=== PATIENT | female | born 2000 ===

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

== ENCOUNTER → 2022-02-13 | Outpatient (CLI) | payer OTHER | END | disposition home or self-care (01) | LOC: LAB 13:22 → LAB SHORT 13:22 | DX: O02.1 Missed abortion (principal) | CPT/HCPCS: 84702 ==

== ENCOUNTER → 2022-07-07 | Outpatient (CLI) | payer OTHER | END | disposition home or self-care (01) | LOC: LAB SHORT 17:37 | DX: R30.0 Dysuria (principal) | CPT/HCPCS: 87077; 87086; 87186 ==

== ENCOUNTER → 2023-03-15 | Outpatient (CLI) | payer OTHER | LOC: LAB SHORT 17:30 → LAB 17:30 | DX: Z34.03 Encounter for supervision of normal first pregnancy, third trimester (principal); Z3A.37 37 weeks gestation of pregnancy | CPT/HCPCS: 87081; 87150 ==

== ENCOUNTER 2023-04-08 07:00 | Inpatient (IN) | payer OTHER ==
[2023-04-08] VITALS (27 sets, daily range): BP systolic 106–133; BP diastolic 55–88
[~2023-04-08] VITALS: Ht 170.2 cm; Wt 86.0 kg
[2023-04-08 08:11] LABS: BASOPHILS ABSOLUTE AUTO 0.03 K/mm3 (0.00-0.23); BASOPHILS PERCENT AUTO 0 % (0-2); EOSINOPHILS ABSOLUTE AUTO 0.07 K/mm3 (0.00-0.68); EOSINOPHILS PERCENT AUTO 1 % (0-6); Hematocrit 35.4 % (33.0-51.0); Hemoglobin 12.2 g/dL (11.5-16.0); IMMATURE GRAN ABSOLUTE AUTO 0.04 K/mm3 (0.00-0.10); IMMATURE GRAN PERCENT AUTO 0 % (0-1); LYMPHOCYTES ABSOLUTE AUTO 2.34 K/mm3 (0.84-5.20); LYMPHOCYTES PERCENT AUTO 22 % (21-46); MONOCYTES PERCENT AUTO 8 % (4-13); Mean Corpuscular HGB 29.8 pg (26.0-34.0); Mean Corpuscular HGB Conc 34.5 g/dL (31.5-36.5); Mean Corpuscular Volume 87 fL (80-100); Mean Platelet Volume 12.7 fL (9.1-12.4); NEUTROPHILS ABSOLUTE AUTO 7.34 K/mm3 (1.96-9.15); NEUTROPHILS PERCENT AUTO 69 % (41-73); Platelet Count 185 K/mm3 (150-400); RDW Standard Deviation 38.1 fL (35.1-46.3); Red Blood Cell Count 4.09 M/mm3 (3.80-5.20); White Blood Cell Count 10.62 K/mm3 (4.00-11.30)
--- NOTE | 2023-04-08 18:58 | NUR ---
DECLINES TORDOL AT THIS TIME. WILL LET RN KNOW WHEN SHE DESIRES IT. PT RESTING COMFORTABLY WITH HER STS.
[2023-04-09 00:21] VITALS: BP 120/72
[2023-04-09 04:42] VITALS: BP 110/62
[2023-04-09 05:55] LABS: Hematocrit 29.3 % (33.0-51.0); Hemoglobin 10.2 g/dL (11.5-16.0); Mean Corpuscular HGB 30.6 pg (26.0-34.0); Mean Corpuscular HGB Conc 34.8 g/dL (31.5-36.5); Mean Corpuscular Volume 88 fL (80-100); Mean Platelet Volume 12.4 fL (9.1-12.4); Platelet Count 160 K/mm3 (150-400); RDW Coefficient Variation 12.4 % (11.7-14.2); RDW Standard Deviation 39.4 fL (35.1-46.3); Red Blood Cell Count 3.33 M/mm3 (3.80-5.20); White Blood Cell Count 11.54 K/mm3 (4.00-11.30)
[2023-04-09 07:33] VITALS: BP 120/62
[2023-04-09 11:59] VITALS: BP 123/74
[2023-04-09 20:11] VITALS: BP 126/83
== END 2023-04-09 20:30 | disposition home or self-care (01) | DRG 807 ==
LOC: OBS 07:00 → BC 07:00 → OBS 07:30 → BC 07:31
PROVIDERS: ADMIT Family Medicine
PROC: 10E0XZZ Delivery of Products of Conception, External Approach (ICD-10-PCS; principal; 2023-04-08)
PROC: 0KQM0ZZ Repair Perineum Muscle, Open Approach (ICD-10-PCS; 2023-04-08)
PROC: 00HU33Z Insertion of Infusion Device into Spinal Canal, Percutaneous Approach (ICD-10-PCS; 2023-04-08)
PROC: 3E0R3BZ Introduction of Anesthetic Agent into Spinal Canal, Percutaneous Approach (ICD-10-PCS; 2023-04-08)
PROC: 0UQMXZZ Repair Vulva, External Approach (ICD-10-PCS; 2023-04-08)
PROC: 3E033VJ Introduction of Other Hormone into Peripheral Vein, Percutaneous Approach (ICD-10-PCS; 2023-04-08)
DX: O48.0 Post-term pregnancy (principal); Z37.0 Single live birth; Z3A.40 40 weeks gestation of pregnancy; Z67.10 Type A blood, Rh positive; O70.0 First degree perineal laceration during delivery; O70.1 Second degree perineal laceration during delivery
CPT/HCPCS: 36415; 51702; 59025; 85025; 85027; 86850; 86900; 86901; A9270; J1885; J2590; J3010; J7120

== ENCOUNTER → 2024-11-23 | Outpatient (CLI) | payer OTHER | LOC: LAB 17:40 → LAB SHORT 17:40 | DX: Z34.83 Encounter for supervision of other normal pregnancy, third trimester (principal); Z3A.36 36 weeks gestation of pregnancy | CPT/HCPCS: 87081; 87150 ==